=== PATIENT | male | born 1990 | race Caucasian/White ===

== ENCOUNTER 2017-03-26 10:06 | Emergency (ER) | payer SELFPAY ==
[~2017-03-26] VITALS: Ht 180.3 cm; Wt 84.0 kg
[~2017-03-26 10:06] MED LIST: Z.0.NO CURRENT MEDS
[2017-03-26 10:07] VITALS: BP 125/67; PULSE 91; RESP 16; TEMP 100.1; O2SAT 99
--- NOTE | 2017-03-26 10:22 | PD ---
HPI Chief Complaint: Cold / Flu Symptoms Time Seen by Provider: 10:22 Travel History International Travel<30 days: No Contact w/Intl Traveler<30days: No Traveled to known affect area: No History of Present Illness HPI 26-year-old male presents the emergency department with 3 day history of fever, chills, and sore throat which has worsened in the last 24 hours. Patient states his throat is sore on both sides are more the right than the left. He is having some difficulty swallowing but no difficulty breathing. He denies nausea, vomiting, shortness of breath, or wheezing. Patient denies ear pain, sinus congestion, or postnasal drip. Patient's pain is about a 7 out of 10. He has not taken any medication this morning. He has no known drug allergies. [facility] Social History Alcohol Use: Yes (SOCIAL) Tobacco Use: No Substance Use: No Allergies-Medications (Allergen,Severity, Reaction): Coded Allergies: No Known Allergies (Unverified , 03/26/17) Reported Meds & Prescriptions Reported Meds & Active Scripts Active Reported No Current Meds (Miscellaneous Medication) Misc Review of Systems Except as stated in HPI: all other systems reviewed are Neg General / Constitutional: Positive: Fever, Chills Eyes: No: Visual changes HENT: Positive: Sore Throat, Rhinitis, Rhinorrhea, Congestion, No: Headaches, Vertigo, Lightheadedness, Nosebleed, Neck Stiffness, Neck Pain, Dental Difficulties, Ear Discharge, Earache Cardiovascular: No: Chest Pain or Discomfort Respiratory: No: Cough, Shortness of Breath Gastrointestinal: No: Nausea, Vomiting, Diarrhea, Abdominal Pain Genitourinary: No: Dysuria Musculoskeletal: No: Pain Skin: No Rash Neurologic: No: Weakness Psychiatric: No: Depression Endocrine: No: Polydipsia Hematologic/Lymphatic: No: Easy Bruising Physical Exam Narrative GENERAL: Patient appears ill but not septic. SKIN: Warm and dry. Normal color. Normal turgor. No rash. HEAD: Atraumatic. Normocephalic. EYES: Pupils equal and round. No scleral icterus. No injection or drainage. ENT: No nasal bleeding or discharge. Mucous membranes pink and moist. TMs are clear bilaterally. No sinus tenderness to palpation. Patient has bilateral tonsillitis greater on the right than the left. Uvula however is midline. Tonsils are not quite touching bilaterally. There is some white exudate noted and erythema. Airway appears patent at this time. NECK: Trachea midline. Supple with mildly tender lymphadenopathy on the right than the left. No signs of Jp's angina. CARDIOVASCULAR: Regular rate and rhythm. No murmurs gallops or rubs. RESPIRATORY: No accessory muscle use. Clear to auscultation. Breath sounds equal bilaterally. GASTROINTESTINAL: Abdomen soft, non-tender, nondistended. Hepatic and splenic margins not palpable. MUSCULOSKELETAL: Extremities without clubbing, cyanosis, or edema. No obvious deformities. NEUROLOGICAL: Awake and alert. No obvious cranial nerve deficits. Motor grossly within normal limits. Five out of 5 muscle strength in the arms and legs. Normal speech. PSYCHIATRIC: Appropriate mood and affect; insight and judgment normal. Data Data Last Documented VS Vital Signs Date Time Temp Pulse Resp B/P Pulse Ox O2 Delivery O2 Flow Rate FiO2 03/26/17 10:07 100.1 91 16 125/67 99 MDM Medical Decision Making Medical Screen Exam Complete: Yes Emergency Medical Condition: Yes Differential Diagnosis Upper respiratory infection. Pharyngitis. Tonsillitis. Early tonsillar abscess. Narrative Course Patient appears medically stable at time of exam. Patient is given Augmentin 875 mg by mouth once now as well as 800 mg ibuprofen by mouth now. Patient is felt stable for discharge. He'll be continued on Augmentin 875 twice a day 10 days. Patient is given ibuprofen 800 mg 3 times daily with food #30. Patient is to rest, push fluids, ice chips, and follow up if symptoms are worsening as discussed. Diagnosis Primary Impression: Tonsillar abscess Additional Impression: Tonsillitis with exudate Referrals: Primary Care Physician Patient Instructions: General Instructions, Tonsillitis (DC) Departure Forms: Work Release Enter return to work date: Mar 28, 2017 Additional Instructions: Patient is given Augmentin 875 mg by mouth once now as well as 800 mg ibuprofen by mouth now. Patient is felt stable for discharge. He'll be continued on Augmentin 875 twice a day 10 days. Patient is given ibuprofen 800 mg 3 times daily with food #30. Patient is to rest, push fluids, ice chips, and follow up if symptoms are worsening as discussed. Med/Other Pt SpecificInfo: Prescription(s) given Disposition: 01 DISCHARGE HOME Condition: Stable Randy Griffiths Mar 26, 2017 10:22
[2017-03-26] MEDS ORDERED: IBUPROFEN 800 MG TAB PO ONE (10:30)
[2017-03-26] MEDS ORDERED: AMOXICILLIN/CLAVULANATE K 875 MG TAB PO ONE (10:30)
[2017-03-26] MEDS ORDERED: AUGM875T3 PO (10:33)
[2017-03-26] MEDS ORDERED: IBUP800T23 PO (10:33)
== END 2017-03-26 10:48 | disposition home or self-care (01) ==
LOC: NEPK 10:06
DX: J36 Peritonsillar abscess (principal)
CPT/HCPCS: 99283